=== PATIENT | male | born 1965 | race Caucasian/White ===

== ENCOUNTER 2019-01-10 10:49 | Emergency (ER) | payer BC ==
[2019-01-10] MEDS ORDERED: Tetan/Diph/Pertus SYR(Tdap)* 0.5 ML SYR(BOOSTRIX) use SYR IM ONE (11:04)
[2019-01-10] MEDS ORDERED: Cephalexin CAP* 500 MG PO ONE (11:12)
--- NOTE | 2019-01-10 11:15 | ED ---
Laceration/Wound HPI - HPI Summary HPI Summary: 53-year-old male presents with right middle finger laceration on Wednesday. He states that he cut it on a oil gas and pipe tester. He states he kept a Band-Aid on until today and then removed it and it started to bleed again. Unsure when his last tetanus was. Has no medical conditions. 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 He has full range of motion of fingers. no numbness or tingling. - History of Current Complaint Stated Complaint: FINGER LAC PER PT Time Seen by Provider: 01/10/19 10:54 Pain Intensity: 0 - Allergy/Home Medications Allergies/Adverse Reactions: Allergies Allergy/AdvReac Type Severity Reaction Status Date / Time No Known Allergies Allergy Verified 01/10/19 10:50 PMH/Surg Hx/FS Hx/Imm Hx Endocrine/Hematology History: Denies: Hx Anticoagulant Therapy Respiratory History: Denies: Hx Asthma - Immunization History Date of Tetanus Vaccine: unknown Infectious Disease History: No Infectious Disease History: Denies: Traveled Outside the [place] in Last 30 Days - Family History Known Family History: Positive: Non-Contributory - Social History Alcohol Use: Occasionally Substance Use Type: Reports: None Smoking Status (MU): Never Smoked Tobacco Review of Systems Negative: Fever Negative: Chest Pain Negative: Shortness Of Breath Positive: Other - laceration right middle finger All Other Systems Reviewed And Are Negative: Yes Physical Exam Triage Information Reviewed: Yes Vital Signs On Initial Exam: Initial Vitals Temp Pulse Resp BP Pulse Ox 98.6 F 65 16 153/95 95 01/10/19 10:51 01/10/19 10:51 01/10/19 10:51 01/10/19 10:51 01/10/19 10:51 Vital Signs Reviewed: Yes Appearance: Positive: Well-Appearing Skin: Positive: Warm, Dry, Other - 2cm by 1/2cm laceration of distal phalanx of right middle finger Eyes: Positive: Normal, Conjunctiva Clear ENT: Positive: Pharynx normal Respiratory/Lung Sounds: Positive: Clear to Auscultation, Breath Sounds Present Cardiovascular: Positive: Normal, RRR Musculoskeletal: Positive: Strength/ROM Intact - right middle finger, Other - capillary refill<2 secs Neurological: Positive: Normal Psychiatric: Positive: Normal Procedures - Laceration/Wound Repair 1 Location: Other - right middle finger Description: Irregular Length, Depth and Shape: 2cm by 1/2cm Irrigated w/ Saline (ccs): 50 Closure: SteriStrips Diagnostics - Vital Signs Vital Signs Temp Pulse Resp BP Pulse Ox 01/10/19 10:51 98.6 F 65 16 153/95 95 - Laboratory Lab Statement: Any lab studies that have been ordered have been reviewed, and results considered in the medical decision making process. Laceration Repair Course/Dx - Course Course Of Treatment: 53-year-old male presents with right middle finger laceration on Wednesday. He states that he cut it on a oil gas and pipe tester. He states he kept a Band-Aid on until today and then removed it and it started to bleed again. Unsure when his last tetanus was. Has no medical conditions. 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 He has full range of motion of fingers. no numbness or tingling. On exam has 2cm by half centimeter laceration of right middle finger. As laceration is unable to close due to length of time open placed sterristrips on the area. Patient is going out of town and since the laceration was not closed and will place on keflex for 5 days. gave tetanus. Patient understands agrees with plan. - Differential Dx Differental Diagnoses: Abrasion, Avulsion, Laceration - Clinical Impression Provider Diagnoses: Laceration of right middle finger Discharge - Sign-Out/Discharge Documenting (check all that apply): Patient Departure Patient Received Moderate/Deep Sedation with Procedure: No - Discharge Plan Condition: Good Disposition: HOME Prescriptions: Cephalexin CAP* [Keflex CAP*] 500 mg PO BID #10 cap Patient Education Materials: Laceration Without Closure (ED) Referrals: No Primary Care Phys,NOPCP [Primary Care Provider] - Additional Instructions: Keep area clean and dry Remove sterristrips if any sign of infection, otherwise will fall off on own take keflex twice a day for 5 days Return to ED if develop any sign of infection or any new or worsening symptoms - Billing Disposition and Condition Condition: GOOD Disposition: Home
[2019-01-10 11:28] VITALS: BP 127/93
== END 2019-01-10 11:27 | disposition home or self-care (01) ==
LOC: ED 10:49
DX: S61.212A Laceration without foreign body of right middle finger without damage to nail, initial encounter (principal); W27.8XXA Contact with other nonpowered hand tool, initial encounter; Z23 Encounter for immunization
CPT/HCPCS: 90471; 90715; 99282; A9270-GY

== ENCOUNTER 2019-10-29 15:15 | Emergency (ER) | payer BC, OTHER ==
--- NOTE | 2019-10-29 15:48 | UC ---
Telehealth HPI HPI Summary: Patient presents to urgent care requesting cold or testing. 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 Patient states on Wednesday he started to have a little bit of a cough. Patient states he does have allergies to thought maybe this was this. Patient states he does feel fatigued and has myalgias. Patient states he worked a prolonged shift on Wednesday, 6:45 AM to 10:30 PM, and states he had a fever of 100.3. Patient states that his general he's allowed to work toes temperatures 100.4 so he finished his shift. Patient states he's had a little nausea but no vomiting. Is eating and drinking but decreased appetite. No diarrhea. No documented fever at home. No shortness of breath. No chest pain. Patient has been taking Tylenol. Patient has a 16-year-old daughter at home who has no symptoms. Patient is not immunocompromised. Patient does not smoke nor does he ethel. Patient's medications is in the EMR by triage nurse review this visit. This was done through telemedicine at the facility due to the covert pandemic. [facility] PMH Previously Healthy: Yes Endocrine/Hematology History: Denies: Hx Anticoagulant Therapy Respiratory History: Denies: Hx Asthma - Immunization History Date of Tetanus Vaccine: unknown Infectious Disease History: No - Family History Known Family History: Negative: Diabetes - Social History Occupation: Employed Full-time - medical corps officer Lives: With Family Alcohol Use: Occasionally Substance Use Type: Reports: None Smoking Status (MU): Never Smoked Tobacco [facility] ROS All Other Systems Reviewed And Are Negative: Yes Positive: Fever - 100.3 oral - Wednesday10/27/19 Telehealth PE Appearance: Positive: Well-Appearing, Alert and Oriented Skin: Positive: Warm Eyes: Positive: Normal, Conjunctiva Clear ENT: Positive: Hearing grossly normal Neck: Positive: Supple Respiratory/Lung Sounds: Positive: Normal Respiratory Effort. Negative: Accessory Muscle Use, Cough, Respiratory Distress, Stridor, Wheezes, Unable to Speak in Full Sentences Cardiovascular: Positive: Skin Color Reflects Adequate Perfusion Neurological: Positive: Alert, Oriented to Person Place, Time. Negative: Receptive Aphasia, Expressive Aphasia Psychiatric: Positive: Normal, Affect/Mood Appropriate [facility] Course/Dx Assessment/Plan: [place] positive [place] exposure. Pt states has a non-productive cough, no sputum, No SOB, no CP. Pt does report myalgias Pt without any history or resp disease. Pt does not smoke or vape Pt well appearing - speaking full easy sentences without cough Will COVID swab reviewed with pt isolation - states understanding -has mask strict return precautions reviewed and discussed pt comfortable and in agreement with plan work note given Provider Diagnoses: Suspected COVID-19 virus infection Telehealth Disposition Provider Recommendation for Treatment: Primary Care Physician Telehealth Visit: Patient Consented Verbally to Telehealth Visit Telehealth Patient Statement: The patient should understand that they are communicating with their provider via a secure communication platform and that all the same privacy and confidentiality rules apply. They will also be responsible for copayments or coinsurances that apply to any Telehealth visit. Patient Identifiers: 2 Patient Identifiers Verified for Telehealth Visit Telehealth Visit Start Time: 15:12 Telehealth Visit End Time: 15:20 Telehealth Provider Attestation: The above services were appropriate to provide in a Telehealth setting.
== END 2019-10-29 16:38 | disposition home or self-care (01) ==
LOC: UCEAST 15:15
DX: U07.1 COVID-19 (principal); R05 Cough; R53.83 Other fatigue; M79.10 Myalgia, unspecified site; R50.9 Fever, unspecified; R11.0 Nausea
CPT/HCPCS: 87635; 99211; G0463; G2023